=== PATIENT | male | born 1945 | race Two or more races ===

== ENCOUNTER 2024-08-09 12:11 | Inpatient (IN) | payer OTHER ==
[~2024-08-09] VITALS: Ht 172.7 cm; Wt 67.1 kg
[2024-08-09] MEDS ORDERED: LOPRESSOR25 MG PO (12:20)
[2024-08-09] MEDS ORDERED: ALTACE10 MG PO (12:20)
[2024-08-09] MEDS ORDERED: PROSCAR5 MG PO (12:21)
[2024-08-09] MEDS ORDERED: CARBIDOPA-LEVO1 EAC1 PO (12:22)
--- NOTE | 2024-08-09 12:22 | NUR ---
PACIENTE REFIERE FIEBRE Y [facility] DESDE AUDI SE ENCUENTRA TOMANDO TYLLENOL, SE MIDEN Y REPORTAN SIGNOS VITALES Y SE UBICA EN AREA FAST TRACK.
[2024-08-09] MEDS ORDERED: ACETAMINOPHEN 500 MG GEL..CAP PO ONE (14:15)
[2024-08-09] MEDS ORDERED: 0.9 % SODIUM CHLORIDE 500 ML IV ONE (14:15)
--- NOTE | 2024-08-09 14:31 | NUR ---
SE LE ORIENTA A PACIENTE SOBRE LA ORDEN MEDICA, REFIERE ENTENDER LAS MISMAS. SE CANALIZA Y SE LE COLOCA EL IVF'S, SE LE OVIDIO LAS MUETRAS Y SE LE DA A CARLO LOS MEDICAMENTO JOSE LA ORDEN MEDICA.
[2024-08-09 14:32] LABS: HEMATOCRIT 35.7 % (39.0-48.0); HEMOGLOBIN 12.2 g/dL (13-16.00); MEAN CORPUSCULAR HEMOGLOBIN 32.1 pg (27.00-32.0); MEAN CORPUSCULAR HGB CONC 34.2 g/dl (32.0-36.0); PLATELET COUNT 149 K/uL (150-450); RED CELL DISTRIBUTION WIDTH 13.7 % (11.5-14.5)
[2024-08-09 15:05] LABS: ALBUMIN 4.2 gm/dL (3.4-5.0); BILIRUBIN TOTAL 2.53 mg/dL (0.3-1.2); CALCIUM 9.3 mg/dL (8.5-10.1); CREATININE SERUM 1.24 mg/dL (0.70-1.30); GFR 56.53; POTASSIUM 3.92 mEq/L (3.5-5.1); TOTAL PROTEIN 8.2 gm/dL (6.4-8.2)
[2024-08-09 15:23] LABS: URINE APPEARANCE Turbid; URINE BILIRRUBIN Small (NEGATIVE); URINE BLOOD Large; URINE COLOR Dark Yellow; URINE KETONE 15 (NEGATIVE); URINE LEUKOCYTE Large; URINE NITRATE Positive
[2024-08-09 15:27] LABS: URINE EPITHELIAL CELLS 21.3 uL (0.0-38.8); URINE RBC 174.3 uL (0.0-20.8)
[2024-08-09 15:44] LABS: URINE BACTERIA > 9821.5 uL (0.0-1933); URINE CAST 0.91 uL (0.0-1.40); URINE GLUCOSE 100 MG/DL (NEGATIVE); URINE PROTEIN 100 (NEGATIVE); URINE WBC 2418.1 uL (0.0-23.2)
[2024-08-09] MEDS ORDERED: CIPROFLOXACIN IN 5 % DEXTROSE 400 MG/200 ML PIGGYBAG IV STA (17:00)
[2024-08-09] MEDS ORDERED: 0.9 % SODIUM CHLORIDE 1,000 ML IV SCH (21:15)
[2024-08-09] MEDS ORDERED: ACETAMINOPHEN 500 MG GEL..CAP PO PRN (21:15)
[2024-08-10 06:00] VITALS: BP 142/83; O2SAT 97
[2024-08-10 08:44] VITALS: BP 163/83; O2SAT 98
[2024-08-10] MEDS ORDERED: FAMOTIDINE/PF 20 MG in 0.9 % SODIUM CHLORIDE 8 ML IV PUSH SCH (09:00)
[2024-08-10] MEDS ORDERED: METOPROLOL SUCCINATE 25 MG TAB.SR.24H PO SCH (09:00)
[2024-08-10] MEDS ORDERED: FINASTERIDE 5 MG TABLET PO SCH (09:00)
[2024-08-10] MEDS ORDERED: RAMIPRIL 5 MG CAPSULE PO SCH (09:00)
[2024-08-10] MEDS ORDERED: TAMSULOSIN HCL 0.4 MG CAP PO SCH (09:00)
[2024-08-10] MEDS ORDERED: CARBIDOPA/LEVODOPA 25/100 UDTAB PO SCH (09:00)
[2024-08-10] MEDS ORDERED: CEFTRIAXONE SODIUM 2,000 MG in 0.9 % SODIUM CHLORIDE 100 ML IV SCH (09:00)
[2024-08-10 09:59] LABS: INR 1.18; PARTIAL THROMBOPLASTIN TIME 29.3 SECONDS (22.0-34.0); PROTHROMBIN TIME 12.7 SECONDS (9.0-11.5)
[2024-08-10 11:46] LABS: PROSTATIC SPECIFIC ANTIGEN 15.8 NG/ML (0.010-4.00)
[2024-08-10 16:20] VITALS: BP 137/73
[2024-08-11 01:09] VITALS: BP 137/78; O2SAT 96
[2024-08-11 06:38] LABS: HEMATOCRIT 31.3 % (39.0-48.0); HEMOGLOBIN 11.1 g/dL (13-16.00); MEAN CORPUSCULAR HEMOGLOBIN 33.3 pg (27.00-32.0); MEAN CORPUSCULAR HGB CONC 35.4 g/dl (32.0-36.0); PLATELET COUNT 135 K/uL (150-450); RED BLOOD COUNT 3.32 M/uL (4.00-6.00); RED CELL DISTRIBUTION WIDTH 14.1 % (11.5-14.5)
[2024-08-11 07:12] LABS: ALBUMIN 3.3 gm/dL (3.4-5.0); BILIRUBIN TOTAL 1.03 mg/dL (0.3-1.2); CALCIUM 8.5 mg/dL (8.5-10.1); CREATININE SERUM 0.89 mg/dL (0.70-1.30); GFR 82.88; PHOSPHOROUS 2.7 mg/dL (2.5-4.9); POTASSIUM 3.82 mEq/L (3.5-5.1); TOTAL PROTEIN 6.3 gm/dL (6.4-8.2)
[2024-08-11 07:17] LABS: C-REACTIVE PROTEIN 10.7 MG/DL (0.00-0.29)
[2024-08-11 08:48] LABS: PH,URINE 5.5 (5.0-8.0); URINE APPEARANCE Cloudy; URINE BILIRRUBIN Negative (NEGATIVE); URINE BLOOD Small; URINE COLOR Yellow; URINE GLUCOSE Negative (NEGATIVE); URINE KETONE 15 (NEGATIVE); URINE LEUKOCYTE Moderate; URINE NITRATE Negative; URINE PROTEIN 30 (NEGATIVE)
[2024-08-11 08:50] LABS: URINE BACTERIA 50.1 uL (0.0-1933); URINE EPITHELIAL CELLS 20.2 uL (0.0-38.8); URINE RBC 18.7 uL (0.0-20.8); URINE WBC 1297.5 uL (0.0-23.2)
[2024-08-11 08:55] LABS: URINE CAST 0.29 uL (0.0-1.40)
[2024-08-11 09:53] VITALS: BP 145/74; O2SAT 98
[2024-08-11 16:35] VITALS: BP 154/83; O2SAT 98
[2024-08-11] MEDS ORDERED: CIPROFLOXACIN IN 5 % DEXTROSE 400 MG/200 ML PIGGYBAG IV SCH (21:00)
[2024-08-12 03:57] VITALS: BP 160/82; O2SAT 96
[2024-08-12 08:49] VITALS: BP 130/74; O2SAT 98
[2024-08-12 17:52] VITALS: BP 146/64
== END 2024-08-12 19:00 | disposition home or self-care (01) | DRG 690 ==
LOC: ER 12:13 → MEDI 22:30
PROVIDERS: General Practice; Internal Medicine Infectious Disease; ADMIT Internal Medicine; ATTEND Internal Medicine
PROC: BW21ZZZ Computerized Tomography (CT Scan) of Abdomen and Pelvis (ICD-10-PCS; principal; 2024-08-09)
PROC: BT4JZZZ Ultrasonography of Kidneys and Bladder (ICD-10-PCS; 2024-08-09)
DX: N39.0 Urinary tract infection, site not specified (principal); R65.10 Systemic inflammatory response syndrome (SIRS) of non-infectious origin without acute organ dysfunction; N17.9 Acute kidney failure, unspecified; I10 Essential (primary) hypertension; B96.20 Unspecified Escherichia coli [E. coli] as the cause of diseases classified elsewhere